=== PATIENT | female | born 1960 | race Caucasian/White ===

== ENCOUNTER 2021-07-18 08:38 | Emergency (ER) | payer OTHER, SELFPAY ==
[2021-07-18 08:51] VITALS: BP 138/74; PULSE 78; RESP 16; TEMP 36.7; O2SAT 97; BMI 21.2
[2021-07-18] MEDS: FLUORESCEIN 1 MG STRIP EYE-RIGHT (09:10)
[2021-07-18] MEDS: PROPARACAINE 0.5% OPHTH SOL 1 DROPS EYE-RIGHT (09:11)
--- NOTE | 2021-07-18 09:21 | ED.EYEPROB ---
HPI - Eye Problem General Chief complaint: Eye Problems Stated complaint: scratched eyeball Time Seen by Provider: 07/18/21 09:04 Source: patient Mode of arrival: Ambulatory Limitations: no limitations History of Present Illness HPI Narrative: Patient is a 61-year-old female who presents with right eye pain and drainage. She states that she wears contacts 3 days ago she felt like something was in her eye it took some taking to get her right contact out but she did. She left contacts out for 2 days ice felt better she put them back in yesterday is and then started having pain again. It took more taking to get her right contact out this morning it is quite painful and draining and erythematous. Related Data Allergies Allergy/AdvReac Type Severity Reaction Status Date / Time No Known Drug Allergies Allergy Verified 07/18/21 09:02 Review of Systems Review of Systems Narrative: GENERAL: Denies chills,fever HEENT: See HPI RESPIRATORY: Denies dyspnea, cough, wheezing CARDIOVASCULAR: Denies chest pain, palpitations GASTROINTESTINAL: Denies nausea, vomiting MUSCULOSKELETAL: Denies extremity pain, injury SKIN: No rash, no laceration, no pruritus NEUROLOGIC: Denies weakness, dizziness, headache, numbness 8 point review of systems is negative except for those stated above and HPI Patient History Social History Smoking Status: Never smoker Smoking Status: Never smoker alcohol intake frequency: 3 or more drinks per day Substance Use Type: does not use Exam Initial Vital Signs Initial Vital Signs: Vital Signs Temperature 98.1 F 07/18/21 08:51 Pulse Rate 78 07/18/21 08:51 Respiratory Rate 16 07/18/21 08:51 Blood Pressure 138/74 07/18/21 08:51 Pulse Oximetry 97 07/18/21 08:51 GENERAL: Well-appearing, well-nourished and in no acute distress. EYE: Right eye has gross discharge, erythematous there is significant dye uptake and right upper quadrant possible ulceration CARDIOVASCULAR: peripheral pulses in tact, cap refill <2 sec RESPIRATORY: No respiratory distress, speaks in full sentences without difficulty EXTREMITIES: Normal range of motion, no clubbing or edema. Neurovascularly intact NEUROLOGICAL: Cranial nerves II through XII grossly intact. Normal gait and speech. SKIN: Warm, dry, no petechiae, no rashes or lesions. Course Orders Ordered: Discontinued Medications Fluorescein Sodium (Fluorescein 1 Mg Strip) 1 mg EYE-RIGHT NOW ONE Stop: 07/18/21 09:05 Last Admin: 07/18/21 09:10 Dose: 1 mg Documented by: SERGIO Proparacaine HCl (Proparacaine 0.5% Ophth Yazmin) 1 drops EYE-RIGHT NOW ONE Stop: 07/18/21 09:06 Last Admin: 07/18/21 09:11 Dose: 1 drop Documented by: SERGIO Vital Signs Vital signs: Vital Signs - 8 hr 07/18/21 08:51 07/18/21 09:30 Temperature 98.1 F Pulse Rate 78 69 Respiratory Rate 16 16 Blood Pressure 138/74 Pulse Oximetry 97 98 MDM - Eye Problem MDM Narrative Medical decision making narrative: Patient's exam is actually quite concerning. She has an obvious infection and possible ulceration [id number] Dr. Rai, ophthalmology, will see in office. wait on antibiotics Patient is escorted to ophthalmology Discharge Plan Departure Patient Disposition: Home Clinical Impression: Bacterial conjunctivitis Instructions: DI for Conjunctivitis Activity Restrictions/Additional Instructions: At this time it is recommended that you go directly to Ophthalmology. They will see you as quickly as they can, but you may need to wait. Keep contacts out. Dr. Rai or 1 of his partners will see you and prescribe appropriate antibiotic Referrals: Clemente Rai MD [Physician] -
[2021-07-18 09:30] VITALS: PULSE 69; RESP 16; O2SAT 98
== END 2021-07-18 09:41 | disposition home or self-care (01) ==
PROVIDERS: Emergency Provider Emergency Medicine
DX: H10.89 Other conjunctivitis (principal)
CPT/HCPCS: 99282